=== PATIENT | male | born 1985 | race Caucasian/White ===

== ENCOUNTER 2022-12-15 19:56 | Emergency (ER) | payer BC, SELFPAY ==
[2022-12-15 19:59] VITALS: BP 146/108; PULSE 127; RESP 16; TEMP 36.8; O2SAT 97; BMI 42.6
--- NOTE | 2022-12-15 20:12 | ED.BACK1 ---
HPI - Back Pain/Injury General Chief Complaint: Back Pain/Injury Stated Complaint: Lower Left Back Pain Time Seen by Provider: 12/15/22 20:02 Source: patient Mode of arrival: walk-in History of Present Illness HPI Narrative: chronic lower back pain on and off for several months. 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 States his back will bother him but once he sits or stands he has no pain Over the past week the pain has been more constant. No weakness of his lower extremities. Warming sensation down his left leg to his knee. No associated abdominal pain or nausea. Has taken Ibuprofen and tylenol today without benefit. he is now sitting and states he has minimal pain. States when he lays down he has no pain. His pain occurs when he stands. No loss of control or bowel or bladder MD elicited complaint: Reports back pain Related Data Allergies Allergy/AdvReac Type Severity Reaction Status Date / Time Penicillins Allergy Severe Anaphylaxis Verified 12/15/22 20:11 Review of Systems ROS Status of ROS 10 or more systems reviewed and unremarkable except as noted in history and below [facility] Social History Smoking status: Current every day smoker Exam Constitutional Vital Signs, click to edit/add: Last Vital Signs Temp 98.3 F 12/15/22 19:59 Pulse 127 H 12/15/22 19:59 Resp 16 12/15/22 19:59 BP 146/108 H 12/15/22 19:59 Pulse Ox 97 12/15/22 19:59 O2 Del Method Room Air 12/15/22 19:59 Common normals: no apparent distress, oriented x3, healthy appearing, alert and well nourished Eye Common normals: EOMs intact bilaterally and conjunctivae normal Respiratory Common normals: normal respiratory effort, no retractions, no use of accessory muscles and clear to auscultation bilaterally Cardio Common normals: regular rate, regular rhythm, S1 normal heart sound and S2 normal heart sound GI Common normals: Normal to inspection, nondistended, normoactive bowel sounds present, soft to palpation and non-tender Extremity Common normals: normal to inspection Neuro Common normals: oriented x3, CN's II-XII intact bilaterally, moves all extremities, no focal motor deficits (no foot drop), no sensory deficits noted and gait normal Psych Appearance: grossly normal Course Vital Signs Vital signs: Vital Signs Temperature 98.3 F 12/15/22 19:59 Pulse Rate 127 H 12/15/22 19:59 Respiratory Rate 16 12/15/22 19:59 Blood Pressure 146/108 H 12/15/22 19:59 Pulse Oximetry 97 12/15/22 19:59 Oxygen Delivery Method Room Air 12/15/22 19:59 Temperature 98.3 F 12/15/22 19:59 Pulse Rate 127 H 12/15/22 19:59 Respiratory Rate 16 12/15/22 19:59 Blood Pressure 146/108 H 12/15/22 19:59 Pulse Oximetry 97 12/15/22 19:59 Oxygen Delivery Method Room Air 12/15/22 19:59 MDM - Back Pain/Injury MDM Narrative Medical decision making narrative: patient presents with acute on chronic lower back pain. No neuro deficits.no fever or injury. medicated in the department with Toradol, solumedrol and magnesium and pain tolerable. Patient ambulatory in the department stating the pain is now tolerable. labs demonstrate elevated WBC. no findings to support infection. He was informed of the elevated WBC and states it has been high before and he is aware of this. He is discharged in improved condition and advised to follow up with his doctor regarding his back pain and elevated WBC Discharged home with a prescription of Ultram. Lab Data Labs: Lab Results 12/15/22 12/15/22 Range/Units 20:20 21:10 WBC 18.4 H (4.0-11.0) 10^3/uL RBC 5.48 (4.70-6.10) 10^6/uL Hgb 16.2 (14.0-18.0) g/dL Hct 47.9 (42.0-54.0) % MCV 87.4 (80.0-94.0) fL MCH 29.6 (25.9-34.0) pg MCHC 33.8 (29.9-35.2) g/dL RDW 12.7 (11.0-15.0) % Plt Count 316 (150-450) 10^3/uL MPV 9.5 (9.5-13.5) fL Neut % (Auto) 73.0 (43.0-75.0) % Lymph % (Auto) 19.7 L (20.5-60.0) % [place] % (Auto) 5.3 (1.7-12.0) % Eos % (Auto) 1.1 (0.9-7.0) % Baso % (Auto) 0.4 (0.2-2.0) % Neut # (Auto) 13.4 H (1.4-6.5) 10^3/uL Lymph # (Auto) 3.6 (1.2-3.8) 10^3/uL [place] # (Auto) 1.0 H (0.3-0.8) 10^3/uL Eos # (Auto) 0.2 (0.0-0.7) 10^3/uL Baso # (Auto) 0.1 (0.0-0.1) 10^3/uL Abs Immat Gran (auto) 0.09 H (0.00-0.03) 10^3/uL Imm/Tot Granulo (auto) 0.5 (0.0-0.5) % ESR 43 H (<=15) mm/hr Sodium 140 (136-145) mmol/L Potassium 3.8 (3.5-5.1) mmol/L Chloride 102 (98-107) mmol/L Carbon Dioxide 27.1 (21.0-32.0) mmol/L Anion Gap 14.7 BUN 16.0 (7.0-18.0) mg/dL Creatinine 1.07 (0.70-1.30) mg/dL Est GFR ( Amer) >60 (>=60) Est GFR (Non-Af Amer) >60 (>=60) BUN/Creatinine Ratio 15.0 Glucose 118 H (74-106) mg/dL Calcium 8.7 (8.5-10.1) mg/dL C-Reactive Protein 4.3 H (<=1.0) mg/dL Urine Color Yellow (YELLOW) Urine Clarity Clear (CLEAR) Urine pH 6.0 (5.0-9.0) Ur Specific [place] 1.025 (1.005-1.025) Urine Protein Negative (NEG/TRACE) mg/dL Urine Glucose (UA) >=1000 A (NEGATIVE) mg/dL Urine Ketones Negative (NEGATIVE) mg/dL Urine Occult Blood Negative (NEGATIVE) Urine Nitrite Negative (NEGATIVE) Urine Bilirubin Negative (NEGATIVE) Urine Urobilinogen 0.2 (0.2-1.0) EU/dL Ur Leukocyte Esterase Negative (NEGATIVE) Discharge Plan Discharge Chief Complaint: Back Pain/Injury Clinical Impression: Lower back pain Instructions: Acute Low Back Pain (ED) Additional Instructions: follow up with your doctor for recheck of your back and your blood count Stand Alone Forms: Portal Instructions Referrals: JACQUELINE MONTANA [Primary Care Provider] - 1 week
[2022-12-15] MEDS: METHYLPREDNISOLONE SOD SUCC PF 125 MG/2 ML VIAL IVP (20:24)
[2022-12-15] MEDS: MAGNESIUM SULFATE IN WATER 2 GM/50 ML PREMIX IV (20:25)
[2022-12-15] MEDS: KETOROLAC TROMETHAMINE 30 MG/ML VIAL IVP (20:25)
[2022-12-15 20:37] LABS: Basophils Absolute Auto 0.1 10^3/uL (0.0-0.1); Basophils Percent Auto 0.4 % (0.2-2.0); Eosinophils Absolute Auto 0.2 10^3/uL (0.0-0.7); Eosinophils Percent Auto 1.1 % (0.9-7.0); Hematocrit 47.9 % (42.0-54.0); Hemoglobin 16.2 g/dL (14.0-18.0); Immature Granulocytes Abs Auto 0.09 10^3/uL (0.00-0.03); Immature Granulocytes Pct Auto 0.5 % (0.0-0.5); Lymphocytes Absolute Auto 3.6 10^3/uL (1.2-3.8); Lymphocytes Percent Auto 19.7 % (20.5-60.0); Mean Corpuscular HGB Conc 33.8 g/dL (29.9-35.2); Mean Corpuscular Hemoglobin 29.6 pg (25.9-34.0); Mean Corpuscular Volume 87.4 fL (80.0-94.0); Mean Platelet Volume 9.5 fL (9.5-13.5); Monocytes Percent Auto 5.3 % (1.7-12.0); Neutrophils Absolute Auto 13.4 10^3/uL (1.4-6.5); Platelet Count 316 10^3/uL (150-450); Red Blood Count 5.48 10^6/uL (4.70-6.10); Red Cell Distribution Width 12.7 % (11.0-15.0); White Blood Count 18.4 10^3/uL (4.0-11.0)
[2022-12-15 20:42] LABS: Erythrocyte Sedimentation Rate 43 mm/hr (<=15)
[2022-12-15 20:48] LABS: Anion Gap 14.7; C Reactive Protein 4.3 mg/dL (<=1.0); Calcium 8.7 mg/dL (8.5-10.1); Carbon Dioxide 27.1 mmol/L (21.0-32.0); Chloride 102 mmol/L (98-107); Estimated GFR (African America >60 (>=60); Estimated GFR (Non-African Ame >60 (>=60); Glucose 118 mg/dL (74-106); Potassium 3.8 mmol/L (3.5-5.1); Sodium 140 mmol/L (136-145)
--- NOTE | 2022-12-15 21:00 | XR_ITS ---
The [place] [id number] Patient Name: PAULA CARDONA MRN: [id number] date: 1985 Sex: M Assigned Patient Location: ER Current Patient Location: ER Accession/Order Number: [id number] Exam Date: 12/15/2022 21:00 Report Date: 12/15/2022 21:31 At the request of: RUSSELL MARTINES Procedure: XR lumbar spine 2-3V EXAM: XR lumbar spine 2-3V HISTORY: back pain COMPARISON: None. TECHNIQUE: 3 view study FINDINGS: Vertebral bodies are normal in height. There is mild disc space narrowing at L5-S1. Other lumbar disc spaces are normal in height. Facet articulations are normal in appearance. XR/XR lumbar spine 2-3V IMPRESSION: Mild disc space narrowing at L5-S1. This may be developmental, as other degenerative changes are not identified. Electronically authenticated by: Joey SANCHEZ Date: 12/15/2022 21:31
[2022-12-15 21:18] LABS: Bilirubin Urine NEGATIVE (NEGATIVE); Blood Urine NEGATIVE (NEGATIVE); Clarity Urine CLEAR (CLEAR); Color Urine YELLOW (YELLOW); Glucose Urine UA >=1000 mg/dL (NEGATIVE); Ketones Urine NEGATIVE (NEGATIVE); Leukocyte Esterase Urine NEGATIVE (NEGATIVE); Nitrite Urine NEGATIVE (NEGATIVE); Protein Urine NEGATIVE (NEG/TRACE); Specific Gravity Urine 1.025 (1.005-1.025); Urobilinogen Urine 0.2 EU/dL (0.2-1.0)
[2022-12-15 21:22] LABS: Urine Microscopic Indicated NO
--- NOTE | 2022-12-15 21:27 | PC.NURSE ---
patient c/o lower left back pain. states he started to having pain a couple months ago and comes and goes. this last week has been more consistant and is now interfering with work. patient states pain is stabbing and at times will experience burning down left leg to left knee. at times will experience pain in left testicle if standing for too long. 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 recently lost 60lbs. did not have back issues prior to weight loss. patient states when at rest and sitting pain goes away and increases when he stands.
[2022-12-15] MEDS: TRAMADOL HCL 50 MG TABLET 200 MG PO (22:46)
== END 2022-12-15 22:55 | disposition home or self-care (01) ==
PROVIDERS: Emergency Provider Internal Medicine; PCP Family Medicine
DX: M54.50 Low back pain, unspecified (principal); G89.29 Other chronic pain; F17.210 Nicotine dependence, cigarettes, uncomplicated
CPT/HCPCS: 36415; 72100; 80048; 81003; 85025; 85652; 86140; 96374; 96375; 99284; J2930

== ENCOUNTER 2024-03-27 23:25 | Emergency (ER) | payer BC, SELFPAY ==
[2024-03-27 23:37] VITALS: BP 140/99; PULSE 106; TEMP 36.8; O2SAT 96; BMI 44.9
--- NOTE | 2024-03-27 23:53 | PC.NURSE ---
complains of left side neck pain and swelling onset 1 day ago, this was seen at urgent care 1 day and given medication, this patient voices a sore throat and no other complaints and shows no signs of distress
--- NOTE | 2024-03-27 23:58 | ED.NECK1 ---
HPI HPI - Neck Pain/Injury General Chief Complaint: Neck Pain/Injury Stated Complaint: NECK PAIN, LIMITED MOVEMENT Time Seen by Provider: 03/27/24 23:43 Source: patient Mode of arrival: walk-in Limitations: no limitations History of Present Illness HPI Narrative: 38-year-old male presents to the emergency department for pain on the left side of his neck. He points to the area just below the angle of his jaw and states he woke up this way yesterday morning. There was no preceding trauma or unusual activity. He went to an urgent care and they gave him a steroid. No fever or right sided pain. Related Data Home Medications ?Medication ?Instructions ?Recorded ?Confirmed ibuprofen 800 mg tablet 800 mg PO TID-QID PRN pain 03/27/24 03/27/24 metformin 1,000 mg tablet,extended 1,000 mg PO BID 03/27/24 03/27/24 release 24hr (osmotic) semaglutide 1 mg/dose (4 mg/3 mL) 1 mg subcut QWEEK 03/27/24 03/27/24 subcutaneous pen injector (Ozempic) Previous Rx's ?Medication ?Instructions ?Recorded acetaminophen 300 mg-codeine 30 mg 1 tab PO Q6H PRN pain 5 days #20 03/28/24 tablet tabs methocarbamol 750 mg tablet 750 mg PO Q6H PRN pain #20 tabs 03/28/24 Allergies Allergy/AdvReac Type Severity Reaction Status Date / Time Penicillins Allergy Severe Anaphylaxis Verified 03/27/24 23:36 Opioid HPI Opioid Management Most Recent Opioid Data: Last Pain Scale 8 03/28/24 00:48 03/28/24 Last MAR Pain Assessment 03/28/24 00:48 Review of Systems ROS Narrative A ten point review of systems is negative except as noted above. [facility] Medical History (Updated 03/28/24 @ 01:26 by Triston Castillo MD) Diabetes ?E11.9 - Type 2 diabetes mellitus without complications (ICD-10) Hypertension ?I10 - Essential (primary) hypertension (ICD-10) Social History Smoking status: Current every day smoker Little interest or pleasure in doing things: not at all Feeling down, depressed, or hopeless: not at all Exam Narrative Exam Narrative: Nurses note and vital signs reviewed and patient is not hypoxic. General: The patient appears well and in no apparent distress. Patient is resting comfortably on cart. Skin: Warm, dry, no pallor noted. There is no rash noted. Head: Normocephalic, atraumatic Eye: Normal conjunctiva, no drainage Ears, Nose, Mouth, and Throat: oral mucosa is moist. Nares patent. He has some tenderness below the left angle of the jaw but there are no masses other than a small palpable lymph node. There is no erythema or bruising or rash. Neck has good range of motion, no rigidity Cardiovascular: Regular Rate and Rhythm Respiratory: Patient is in no distress, no accessory muscle use, lungs are clear to auscultation, no wheezing, rales or rhonchi Back: non-tender GI: Soft and nontender Musculoskeletal: The patient has no evidence of calf tenderness, no pitting edema, symmetrical pulses noted bilaterally Neurological: A&O, normal speech; upper and lower extremity strength intact Psychiatric: Cooperative Constitutional Vital Signs, click to edit/add: Last Vital Signs Temp 98.3 F 03/27/24 23:37 Pulse 106 H 03/27/24 23:37 Resp 19 03/27/24 23:37 BP 140/99 H 03/27/24 23:37 Pulse Ox 96 03/27/24 23:37 O2 Del Method Room Air 03/27/24 23:37 Course Vital Signs Vital signs: Vital Signs Temperature 98.3 F 03/27/24 23:37 Pulse Rate 106 H 03/27/24 23:37 Respiratory Rate 19 03/27/24 23:37 Blood Pressure 140/99 H 03/27/24 23:37 Pulse Oximetry 96 03/27/24 23:37 Oxygen Delivery Method Room Air 03/27/24 23:37 Temperature 98.3 F 03/27/24 23:37 Pulse Rate 106 H 03/27/24 23:37 Respiratory Rate 19 03/27/24 23:37 Blood Pressure 140/99 H 03/27/24 23:37 Pulse Oximetry 96 03/27/24 23:37 Oxygen Delivery Method Room Air 03/27/24 23:37 MDM - Neck Pain/Injury MDM Narrative Medical decision making narrative: His workup here is negative including x-ray of his neck. Amylase is normal, no evidence of parotitis. He will be treated symptomatically. Treatment diagnosis and follow-up were discussed with the patient. Lab Data Attestation: I reviewed the patient's lab results. Labs: Lab Results 03/28/24 Range/Units 00:12 WBC 17.4 H (4.0-11.0) 10^3/uL RBC 4.81 (4.70-6.10) 10^6/uL Hgb 14.6 (14.0-18.0) g/dL Hct 42.2 (42.0-54.0) % MCV 87.7 (80.0-94.0) fL MCH 30.4 (25.9-34.0) pg MCHC 34.6 (29.9-35.2) g/dL RDW 12.3 (11.0-15.0) % Plt Count 220 (150-450) 10^3/uL MPV 9.4 L (9.5-13.5) fL Neut % (Auto) 76.4 H (43.0-75.0) % Lymph % (Auto) 14.3 L (20.5-60.0) % [place] % (Auto) 7.9 (1.7-12.0) % Eos % (Auto) 0.7 L (0.9-7.0) % Baso % (Auto) 0.3 (0.2-2.0) % Neut # (Auto) 13.3 H (1.4-6.5) 10^3/uL Lymph # (Auto) 2.5 (1.2-3.8) 10^3/uL [place] # (Auto) 1.4 H (0.3-0.8) 10^3/uL Eos # (Auto) 0.1 (0.0-0.7) 10^3/uL Baso # (Auto) 0.1 (0.0-0.1) 10^3/uL Abs Immat Gran (auto) 0.07 H (0.00-0.03) 10^3/uL Imm/Tot Granulo (auto) 0.4 (0.0-0.5) % Sodium 139 (136-145) mmol/L Potassium 4.2 (3.5-5.1) mmol/L Chloride 104 (98-107) mmol/L Carbon Dioxide 26.3 (21.0-32.0) mmol/L Anion Gap 12.9 BUN 16.0 (7.0-18.0) mg/dL Creatinine 0.93 (0.70-1.30) mg/dL Est GFR ( Amer) >60 (>=60 mL/min/1.73m^2) Est GFR (Non-Af Amer) >60 (>=60 mL/min/1.73m^2) BUN/Creatinine Ratio 17.2 Glucose 105 (74-106) mg/dL Calcium 8.6 (8.5-10.1) mg/dL Amylase 34 (25-115) U/L Imaging Data C-spine x-ray: Radiologist's impression: ITS Impressions Cervical Spine X-Ray 03/28/24 00:01 IMPRESSION: 1. Normal examination. Electronically authenticated by: DANNY WHITEHEAD Date: 03/28/2024 01:00 Discharge Plan Discharge Chief Complaint: Neck Pain/Injury Clinical Impression: Neck pain Patient Disposition: Home, Self-Care Time of Disposition Decision: 01:26 Condition: Good Mode of Transportation: Private Vehicle Prescriptions / Home Meds: New acetaminophen-codeine 300-30 mg tablet 1 tab PO Q6H PRN (Reason: pain) 5 Days Qty: 20 0RF methocarbamol 750 mg tablet 750 mg PO Q6H PRN (Reason: pain) Qty: 20 0RF No Action metformin 1,000 mg tablet extended release 24hr 1,000 mg PO BID Ozempic 1 mg/dose (4 mg/3 mL) pen injector 1 mg subcut QWEEK ibuprofen 800 mg tablet 800 mg PO TID-QID PRN (Reason: pain) Print Language: Yoruba Instructions: Acute Neck Pain (ED) Referrals: JACQUELINE MONTANA [Primary Care Provider] - 1 week
--- NOTE | 2024-03-28 00:01 | XR_ITS ---
The [address] [address] Patient Name: PAULA CARDONA MRN: [id number] date: 1985 Sex: M Assigned Patient Location: ER Current Patient Location: ER Accession/Order Number: [id number] Exam Date: 03/28/2024 00:15 Report Date: 03/28/2024 01:00 At the request of: TANI CHAMORRO Procedure: XR cervical spine 2-3V EXAMINATION: XR cervical spine 2-3V HISTORY: Atraumatic left-sided pain COMPARISON: No relevant comparison available. FINDINGS: BONES: No significant spondylosis, scoliosis, fracture, or visible bony lesion. DISC SPACES: No significant disc height narrowing, subluxation, or endplate abnormality. PARASPINOUS: Negative. No paraspinous abnormality is seen. OTHER: Negative. XR/XR cervical spine 2-3V IMPRESSION: 1. Normal examination. Electronically authenticated by: DANNY WHITEHEAD Date: 03/28/2024 01:00
[2024-03-28 00:19] LABS: Basophils Absolute Auto 0.1 10^3/uL (0.0-0.1); Basophils Percent Auto 0.3 % (0.2-2.0); Eosinophils Absolute Auto 0.1 10^3/uL (0.0-0.7); Eosinophils Percent Auto 0.7 % (0.9-7.0); Hematocrit 42.2 % (42.0-54.0); Hemoglobin 14.6 g/dL (14.0-18.0); Immature Granulocytes Abs Auto 0.07 10^3/uL (0.00-0.03); Immature Granulocytes Pct Auto 0.4 % (0.0-0.5); Lymphocytes Absolute Auto 2.5 10^3/uL (1.2-3.8); Lymphocytes Percent Auto 14.3 % (20.5-60.0); Mean Corpuscular HGB Conc 34.6 g/dL (29.9-35.2); Mean Corpuscular Hemoglobin 30.4 pg (25.9-34.0); Mean Corpuscular Volume 87.7 fL (80.0-94.0); Mean Platelet Volume 9.4 fL (9.5-13.5); Monocytes Absolute Auto 1.4 10^3/uL (0.3-0.8); Monocytes Percent Auto 7.9 % (1.7-12.0); Neutrophils Absolute Auto 13.3 10^3/uL (1.4-6.5); Neutrophils Percent Auto 76.4 % (43.0-75.0); Platelet Count 220 10^3/uL (150-450); Red Blood Count 4.81 10^6/uL (4.70-6.10); Red Cell Distribution Width 12.3 % (11.0-15.0); White Blood Count 17.4 10^3/uL (4.0-11.0)
[2024-03-28 00:30] LABS: Amylase 34 U/L (25-115); Anion Gap 12.9; BUN Creatinine Ratio 17.2; Calcium 8.6 mg/dL (8.5-10.1); Carbon Dioxide 26.3 mmol/L (21.0-32.0); Chloride 104 mmol/L (98-107); Estimated GFR (African America >60 (>=60 mL/min/1.73m^2); Estimated GFR (Non-African Ame >60 (>=60 mL/min/1.73m^2); Glucose 105 mg/dL (74-106); Potassium 4.2 mmol/L (3.5-5.1); Sodium 139 mmol/L (136-145)
[2024-03-28] MEDS: KETOROLAC TROMETHAMINE 60 MG/2 ML VIAL IM (00:48)
[2024-03-28] MEDS: ORPHENADRINE 60 MG/ 2 ML VIAL IM (00:48)
--- NOTE | 2024-03-28 01:45 | PC.NURSE ---
i gave this patient verbal and written discharge orders along with 2 e-scripts, his patient voices yes to understanding these. at time of discharge this patient voices no concerns and shows no signs of distress
== END 2024-03-28 01:46 | disposition home or self-care (01) ==
PROVIDERS: Emergency Provider Emergency Medicine; PCP Family Medicine
DX: M54.2 Cervicalgia (principal); F17.200 Nicotine dependence, unspecified, uncomplicated
CPT/HCPCS: 36415; 72040; 80048; 82150; 85025; 96372; 99285; J1885; J2360

== ENCOUNTER 2024-03-29 00:11 | Emergency (ER) | payer BC, SELFPAY ==
[2024-03-29 00:13] VITALS: BP 178/101; PULSE 102; TEMP 36.4; O2SAT 98; BMI 44.9
--- NOTE | 2024-03-29 00:24 | CT_ITS ---
The [address] [address] Patient Name: PAULA CARDONA MRN: [id number] date: 1985 Sex: M Assigned Patient Location: ER Current Patient Location: Accession/Order Number: [id number] Exam Date: 03/29/2024 00:41 Report Date: 03/29/2024 02:00 At the request of: TANI CHAMORRO Procedure: CT soft tissue neck w con EXAMINATION: CT Soft Tissue Neck with IV Contrast TECHNIQUE: Axial CT imaging of the neck was performed following the intravenous injection of contrast material according to the standard protocol. Sagittal and coronal 2-D reformats were made from source images. CONTRAST: The amount and type of contrast are recorded int he medical record. QPP DOCUMENTATION: At least one of the following dose reduction techniques was utilized: Iterative reconstruction, and/or Automatic Exposure Control, and/or mA/kV adjustment based on body size. INDICATION: . Atraumatic pain COMPARISON: None FINDINGS: Pharynx/Larynx: There is mildly enhancing soft tissue prominence along the base of the tongue and filling the vallecula. This may represent hypertrophied lingual tonsils. No other mass lesions are identified throughout the nasopharynx, oropharynx, hypopharynx, or larynx. The trachea and visualized esophagus are unremarkable. No retropharyngeal fluid collections. No evidence of tonsillar abscesses. Oral Cavity: The visualized portions of the oral tongue and floor of mouth are unremarkable. Lymph Nodes: No pathologically enlarged cervical lymph nodes. Vascular: There is hazy attenuation within the fat around the carotid sheath extending from the C1 level to the level the thyroid cartilage. No discrete fluid collections are identified in this region. Thyroid: The thyroid gland is unremarkable. Parotid and Submandibular Glands: The submandibular and parotid glands have a normal appearance. Osseous Structures: Unremarkable. Orbits and Paranasal Sinuses: The visualized orbits and paranasal sinuses are unremarkable. Intracranial: The visualized intracranial structures are unremarkable. Lung Apices: The visualized lung apices are clear. CT/CT soft tissue neck w con IMPRESSION: 1. There is hazy attenuation of the fat around the upper carotid sheath extending from about the C1 level to the level the thyroid cartilage. No discrete fluid collections. These findings are of uncertain etiology. Multiple infectious and inflammatory processes could give this appearance. Electronically authenticated by: JESUS TABOR Date: 03/29/2024 02:00
--- NOTE | 2024-03-29 00:24 | ED.NECK1 ---
HPI HPI - Neck Pain/Injury General Chief Complaint: Neck Pain/Injury Stated Complaint: NECK PAIN Time Seen by Provider: 03/29/24 00:21 Source: patient Mode of arrival: walk-in Limitations: no limitations History of Present Illness HPI Narrative: 38-year-old male presents to the emergency department for pain in his neck. He was seen here last night for the same issue and had blood work and an x-ray of his neck that was negative. He continues to have pain just below the angle of his jaw. There was no trauma and has had this for few days. He has no right-sided pain or sore throat or posterior neck pain. No chest pain or shortness of breath or cough. Related Data Home Medications ?Medication ?Instructions ?Recorded ?Confirmed ibuprofen 800 mg tablet 800 mg PO TID-QID PRN pain 03/27/24 03/29/24 metformin 1,000 mg tablet,extended 1,000 mg PO BID 03/27/24 03/29/24 release 24hr (osmotic) semaglutide 1 mg/dose (4 mg/3 mL) 1 mg subcut QWEEK 03/27/24 03/29/24 subcutaneous pen injector (Ozempic) methylprednisolone 4 mg tablets in 4 mg PO Q12H 03/29/24 03/29/24 a dose pack Previous Rx's ?Medication ?Instructions ?Recorded acetaminophen 300 mg-codeine 30 mg 1 tab PO Q6H PRN pain 5 days #20 03/28/24 tablet tabs methocarbamol 750 mg tablet 750 mg PO Q6H PRN pain #20 tabs 03/28/24 Allergies Allergy/AdvReac Type Severity Reaction Status Date / Time Penicillins Allergy Severe Anaphylaxis Verified 03/29/24 00:18 Opioid HPI Opioid Management Most Recent Opioid Data: Last Pain Scale 8 03/28/24 00:48 03/28/24 Review of Systems ROS Narrative A ten point review of systems is negative except as noted above. [facility] Medical History (Updated 03/29/24 @ 02:41 by Triston Castillo MD) Diabetes ?E11.9 - Type 2 diabetes mellitus without complications (ICD-10) Hypertension ?I10 - Essential (primary) hypertension (ICD-10) Social History Smoking status: Current every day smoker Little interest or pleasure in doing things: not at all Feeling down, depressed, or hopeless: not at all Exam Narrative Exam Narrative: Nurses note and vital signs reviewed and patient is not hypoxic. General: The patient appears well and in no apparent distress. Patient is resting comfortably on cart. Skin: Warm, dry, no pallor noted. There is no rash noted. Head: Normocephalic, atraumatic Eye: Normal conjunctiva, no drainage Ears, Nose, Mouth, and Throat: oral mucosa is moist. Nares patent. His neck has no bruise or rash. Palpable lymph node is present below the left angle of the jaw. Cardiovascular: Regular Rate and Rhythm Respiratory: Patient is in no distress, no accessory muscle use, lungs are clear to auscultation, no wheezing, rales or rhonchi Back: non-tender GI: Soft and nontender Musculoskeletal: No joint swelling Neurological: A&O, normal speech Psychiatric: Cooperative Constitutional Vital Signs, click to edit/add: Last Vital Signs Temp 97.6 F 03/29/24 00:13 Pulse 102 H 03/29/24 00:13 Resp 18 03/29/24 00:13 BP 178/101 H 03/29/24 00:13 Pulse Ox 98 03/29/24 00:13 O2 Del Method Room Air 03/29/24 00:13 Course Vital Signs Vital signs: Vital Signs Temperature 97.6 F 03/29/24 00:13 Pulse Rate 102 H 03/29/24 00:13 Respiratory Rate 18 03/29/24 00:13 Blood Pressure 178/101 H 03/29/24 00:13 Pulse Oximetry 98 03/29/24 00:13 Oxygen Delivery Method Room Air 03/29/24 00:13 Temperature 97.6 F 03/29/24 00:13 Pulse Rate 102 H 03/29/24 00:13 Respiratory Rate 18 03/29/24 00:13 Blood Pressure 178/101 H 03/29/24 00:13 Pulse Oximetry 98 03/29/24 00:13 Oxygen Delivery Method Room Air 03/29/24 00:13 MDM - Neck Pain/Injury MDM Narrative Medical decision making narrative: CT scan per radiologist shows nonspecific hazy attenuation in the fat tissue of the left carotid sheath. There is no abscess or defined evidence of an infection. Case was discussed with Dr. Earl and the patient is being referred to Dr. Earl. He will continue the steroids and the pain medication. Treatment diagnosis and follow-up were discussed with the patient. Differential Diagnosis Differential diagnosis: Likely disc disorder of cervical region, cervical radiculopathy and other (Muscle strain) Imaging Data CT neck: Radiologist's impression: ITS Impressions Soft Tissue Neck CT 03/29/24 00:24 IMPRESSION: 1. There is hazy attenuation of the fat around the upper carotid sheath extending from about the C1 level to the level the thyroid cartilage. No discrete fluid collections. These findings are of uncertain etiology. Multiple infectious and inflammatory processes could give this appearance. Electronically authenticated by: JESUS TABOR Date: 03/29/2024 02:00 ADDENDUM: 03/29/24 0222 IMPRESSION: 1. There is hazy attenuation of the fat around the upper carotid sheath extending from about the C1 level to the level the thyroid cartilage. No discrete fluid collections. These findings are of uncertain etiology. Multiple infectious and inflammatory processes could give this appearance. Electronically authenticated by: JESUS TABOR Date: 03/29/2024 02:18 Discharge Plan Discharge Chief Complaint: Neck Pain/Injury Clinical Impression: Neck pain Patient Disposition: Home, Self-Care Time of Disposition Decision: 02:41 Condition: Good Mode of Transportation: Private Vehicle Prescriptions / Home Meds: No Action methylprednisolone 4 mg tablets,dose pack 4 mg PO Q12H metformin 1,000 mg tablet extended release 24hr 1,000 mg PO BID Ozempic 1 mg/dose (4 mg/3 mL) pen injector 1 mg subcut QWEEK ibuprofen 800 mg tablet 800 mg PO TID-QID PRN (Reason: pain) acetaminophen-codeine 300-30 mg tablet 1 tab PO Q6H PRN (Reason: pain) 5 Days Qty: 20 0RF methocarbamol 750 mg tablet 750 mg PO Q6H PRN (Reason: pain) Qty: 20 0RF Print Language: Botswanan Instructions: Acute Neck Pain (ED) Referrals: JACQUELINE MONTANA [Primary Care Provider] - 1 week Nikole Earl MD [Physician] - 1 week
== END 2024-03-29 03:02 | disposition home or self-care (01) ==
PROVIDERS: Emergency Provider Emergency Medicine; PCP Family Medicine
DX: M54.2 Cervicalgia (principal); F17.200 Nicotine dependence, unspecified, uncomplicated; R93.7 Abnormal findings on diagnostic imaging of other parts of musculoskeletal system
CPT/HCPCS: 70491; 99284; Q9967

== ENCOUNTER 2025-03-02 09:51 | Emergency (ER) | payer BC, SELFPAY ==
--- OUTSIDE RECORDS SUMMARY | 2014-05-19 05:45 | XMS_ITS | Continuity of Care Document ---
Author Organization [facility] Address [address] [place] [address] Phone Care Team Providers Care Remotely Operated Vehicle Name Role Phone Israel Ko Unavailable Unavailable Allergies, Adverse Reactions, Alerts Substance Reaction Status Criticality Penicillins Unknown Active No Information Procedures Procedure Date IMMUNIZATION ADMIN HEP B VACCINE, ADULT, IM OFFICE/OUTPATIENT VISIT, EST HEP B VACCINE, ADULT, IM OFFICE/OUTPATIENT VISIT, EST HEP B VACCINE, ADULT, IM FLU VAC NO PRSV 4 KELLY 3 YRS+ HEP B VACCINE, ADULT, IM OFFICE/OUTPATIENT VISIT, EST TB INTRADERMAL TEST TB INTRADERMAL TEST TB INTRADERMAL TEST HEP B VACCINE, ADULT, IM TB INTRADERMAL TEST OFFICE/OUTPATIENT VISIT, EST HEP B VACCINE, ADULT, IM TB INTRADERMAL TEST Advance Directives Directive Yes / No Effective Date File Name No Information Encounters Encounter Description Practice Location Reason(s) For Visit Diagnoses Date Provider Providers Copied on Encounter OFFICE/OUTPAT IENT VISIT, [facility], [address] [place], [place], [id number], [place] tel:[phone] [facility] No Information 3-201 5 Marleny Zheng. [address] [place] [address], [id number] , [place]. tel:[phone] OFFICE/OUTPAT IENT VISIT, [facility], [address] [place], [place], [id number], [place] tel:[phone] [facility] Influenza Vaccine 4 Marleny Zheng. [address] [place], [place], [id number] , [place]. tel:[phone] [facility], [address] [place], [place], [id number], [place] tel:[phone] [facility] No Information 4 Marleny Zheng. [address] [place], [place], [id number] , [place]. tel: [phone] OFFICE/OUTPAT IENT VISIT, [facility], [address] [place] [address], [id number], [place] tel:[phone] [facility] Screening examination for pulmonary tuberculosisNeed for prophylactic vaccination and inoculation against viralhepatitis 4 [facility]. [address] [place] [address], [id number] , [place]. tel:[phone] Family History Family Member Type Diagnosis Age At Onset No Information Immunizations Vaccine Date Status Comments Hepatitis B, Adult dose administered Note : VIS 05/08/11 given. ; Source: New Immunization Record Flu (split) (3 yrs or older) administered Note: VIS given for all vaccines administered today. ; Source: New Immunization Record Flu (split) (3 yrs or older) administered Note: VIS given for all vaccines administered today. ; Source: New Immunization Record Flu (split) (3 yrs or older) administered Note: VIS given for all vaccines administered today. ; Source: New Immunization Record Flu (split) (3 yrs or older) administered Note: VIS given for all vaccines administered today. ; Source: New Immunization Record Flu (split) (3 yrs or older) administered Note: VIS given for all vaccines administered today. ; Source: New Immunization Record Flu (split) (3 yrs or older) administered Note: VIS given for all vaccines administered today. ; Source: New Immunization Record Flu (split) (3 yrs or older) administered Note: VIS given for all vaccines administered today. ; Source: New Immunization Record Flu (split) (3 yrs or older) administered Note: VIS given for all vaccines administered today. ; Source: New Immunization Record Flu (split) (3 yrs or older) administered Note: VIS given for all vaccines administered today. ; Source: New Immunization Record Flu (split) (3 yrs or older) administered Note: VIS given for all vaccines administered today. ; Source: New Immunization Record Flu (split) (3 yrs or older) administered Note: VIS given for all vaccines administered today. ; Source: New Immunization Record Flu (split) (3 yrs or older) administered Note: VIS given for all vaccines administered today. ; Source: New Immunization Record Flu (split) (3 yrs or older) administered Note: VIS given for all vaccines administered today. ; Source: New Immunization Record Hep B (adult) administered Source: New Im munization Record Hep B (adult) administered Note: Vis give n for all vaccines given today. ; Source: New Immunization Record Payers Payer name Insurance type Covered alliance party ID Authoriza tion(s) Medicaid Wrap - [facility] [place] [id number] Medicaid Wrap - [employer] [place] [id number] Social History Type Description Quantity Date Captured Comments Sex Male Smoking Status No Information Chief Complaint And Reason For Visit No Information Reason For Referral Reason For Referral No Information History Of Present Illness Encounter Date Complaint History Of Prese nt Illness No Information Functional Status Date Functional Assessmen t No Information Instructions Date Instruction Additional Infor mation No Information Assessments Type Assessment Date No Information Patient Care Teams Name Effective Dates (start - stop) Status Members No Information
[2025-03-02 09:57] VITALS: BP 158/108; PULSE 89; TEMP 36.8; O2SAT 96; BMI 35.4
--- OUTSIDE RECORDS SUMMARY | 2025-03-02 10:16 | XMS_ITS | Patient Health Record ---
Author Organization [facility] Address [address] [place] [address] Care Team Providers Care Cnc Cutting Operator Name Role Phone None, None Primary Care Provider Angelo Lockett Unavailable [phone] Allergies Allergen (clinical drug ingredient) Drug/Non Drug Allergy documented on EMR Reaction Allergy Type Onset Date Status PenicillinUnknownDrug AllergyActive Reason For Referral No Information Medications Medication SIG (Take, Route, Frequency, Duration) Notes Start Date End Date Status Benzonatate 100 MG Capsule 1 capsule as needed O rally tid prn; Duration: 7 days 06/13/2021ctiveJardiance 25 MG Tablet1 tablet Orally Once a day; Duration: 30 day(s)ActivemethylPREDNISolone 4 MG Tablet Therapy Packas directed Orally s directed; Duration: 6 days06/13/2021ctivemetFORMIN HCl 1000 MG Tablet1 tablet with a meal Orally Once a day; Duration: 30 day(s)ActiveIbuprofen 800 MG Tablet1 tablet with food or milk as needed Orally Three times a dayActiveAlbuterol Sulfate HFA 108 (90 Base) MCG/ACT Aerosol Solution2 puff as needed Inhalation every 4 hrs prn; Duration: 10 days06/13/2021ctiveLisinopril 20 MG Tablet1 tablet Orally Once a day; Duration: 30 day(s)Active Social History Social History Additional DetailsCategorySocial InfoOptionsDetailsMiscellaneous:Domestic Violence:noVerbal abuse:no*Ask Below Questions*Colleen Yuan CMA 06/13/2021 11:49:10 AM EST >Emotional Abuse:noPhysical Abuse:noFinancial Abuse:noElderly Abuse:noChild Abuse:noSexual Abuseno Plan Of Treatment No Information Insurance Providers Payer Name Payer Address Payer Phone Subscriber Number Group Number Insured Name Patient Relationship to Insured Coverage Start Date Coverage End Date DEAN JIMENEZ [address] [place] [phone] [id number] PAULA CARDONA Self - patient is the insured 1 Medical (General) History Surgical History Surgery Date(Month/Year)
--- OUTSIDE RECORDS SUMMARY | 2025-03-02 10:16 | XMS_ITS | Clinical Summary ---
Author Organization [facility] Address [address] [place] [address] Care Team Providers Care Nursery Helper Name Role Phone Pravin Florian DO Primary Care Provider [phone] Allergies Active AllergyReactionsCriticalityNoted DateCommentsPenicillin JQmzdz9108/28/2022 Medications MedicationSigDispense QuantityRefillsLast FilledStart DateEnd DateStatus Continuous Blood Gluc Recording Engineer (FreeStyle Eileen 2 Keller) device USE TO MONITOR CJNTZJB3210/18/2021ctive Continuous Blood Gluc Sensor (FreeStyle Eileen 2 Sensor) misc USE TO MONITOR GLUCOSE (CHANGE SENSOR AFTER 14 DAYS)11/15/2021ctive Jardiance 25 MG Take 25 mg by mouth in the morning.04/09/2022ctive ibuprofen 800 MG tablet 1 tablet with food or milk as needed Orally Three times a day as needed.Active lisinopril-hydroCHLOROthiazide 20-12.5 MG tablet Take 1 tablet by mouth in the morning.10/22/2021ctive metFORMIN (Glucophage) 1000 MG tablet every 12 (twelve) hours.Active Active Problems ProblemNoted DateDiagnosed DateType 2 diabetes mellitus without complication, without long-term current use of xrpcytz3408/28/2022 Family History RelationNameStatusCommentsFatherDeceasedMotherDeceased Social History Tobacco UseTypesPacks/DayYears UsedDateSmoking Tobacco: Every DayCigarettes Alcohol UseStandard Drinks/WeekCommentsYes0 (1 standard drink = 0.6 oz pure alcohol)occasionalSex and Gender InformationValueDate RecordedSex Assigned at BirthNot on fileLegal HjaVlau5406/18/2022 7:14 PM EDTGender IdentityNot on file Sexual OrientationNot on file Last Filed Vital Signs Vital SignReadingTime TakenCommentsBlood Hnsdvhvo262/8205/ 2:23 PM EDT Pulse--Temperature--Respiratory Rate--Oxygen Saturation--Inhaled Oxygen Concentration--Uiaxby342 kg (396 lb)08/28/2022 2:23 PM JDKJmdqmh325.9 cm (6') 08/28/2022 2:23 PM EDTBody Mass Index53.71008/28/2022 2:23 PM EDT Plan of Treatment Not on file Insurance Care Teams Team MemberRelationshipSpecialtyStart DateEnd Date Pravin Florian DO PCP - GeneralFamily Medicine08/28/22
--- OUTSIDE RECORDS SUMMARY | 2025-03-02 10:16 | XMS_ITS | Clinical Summary ---
Author Organization [facility] Address [address] [place], [place] [id number] Care Team Providers Care Print Cutter Name Role Phone Leesa Florianyessy Asencio Primary Care Provider [phone] Raman Cotton Unavailable [phone] Allergies Active AllergyReactionsCriticalityNoted DateCommentsPenicillinsAnaphylaxisHigh 07/06/2020 Medications MedicationSigDispense QuantityRefillsLast FilledStart DateEnd DateStatus JARDIANCE 10 mg tablet Take 10 mg by mouth once daily.04/21/2020ctive metFORMIN (GLUCOPHAGE) 1,000 mg tablet TAKE ONE TABLET BY MOUTH TWO TIMES A DAY WITH A MEAL04/04/2020Active Phentermine HCl 37.5 mg tablet Take by mouth every 24 hours.Active ibuprofen (IBU) 800 mg tablet 12/05/2017Active Active Problems ProblemNoted DateDiagnosed DateObesity, Class III, BMI >= 4012train of right rotator cuff hqdrldw5001/07/2021Impingement syndrome of right shoulder 01/07/2021dhesive capsulitis of right xokwkyvu08/04/2021 Family History Medical HistoryRelationCommentsDiabetesFatherbladder cancerFatherHeart Attack Maternal GrandmotherDiabetesMotherHeart diseaseMotherRectal CancerMotherRelation StatusCommentsFatherAliveMaternal GrandmotherMotherAlive Social History Tobacco UseTypesPacks/DayYears UsedDateSmoking Tobacco: Every DayCigarettes0.31 Smokeless Tobacco: Never Tobacco Cessation:Ready to Q uit: Not Asked; Counseling Given: Not Answered Alcohol UseStandard Drinks/WeekCommentsYes0 (1 standard drink = 0.6 oz pure alcohol)occasionalyArea Deprivation IndexAnswerDate RecordedNational Score (1- 100), lower number is lower fmgl979509/23/2022State Score (1-10), lower number is lower dtwx1123Data from: https://www.neighborhoodatlas.medicine.[facility].edu/. Last address used for cwojrvmqh[address]/23/2022Sex and Gender InformationValueDate Recorded Sex Assigned at BirthNot on fileLegal WmmFdlt67/02/2012 8:59 AM ESTGender IdentityNot on fileSexual OrientationNot on file Last Filed Vital Signs Vital SignReadingTime TakenCommentsBlood Ajizgdzq564/9904/28/2023 3:55 PM EST Qggjw92078/23/2024 3:55 PM XDGLlsvmhahwbr61.2 ??C (97.2 ??F)04/28/2023 3:55 PM ESTRespiratory Gdtq099604/28/2023 3:55 PM ESTOxygen Sucsssojae404%04/28/2023 3:55 PM ESTInhaled Oxygen Concentration--Luaedz940 kg (315 lb 4.1 oz)04/28/2023 3:55 PM ZVTYuwnef594 cm (6' 2.02 )04/28/2023 3:55 PM ESTBody Mass Index40.46 04/28/2023 3:55 PM EST Plan of Treatment Health MaintenanceDue DateLast DoneCommentsAnxiety Horyeykql20/31/2005Depression Cwcfqiokz81/31/2005HIV Iuezrslcr97/31/2005Hepatitis C Sgsjgtqgd65/31/2005HPV Vaccine (1 - 3-dose SCDM series)2013Lipid Aejugoyvx79/31/2022ovid-19 Vaccine (2024- season)2024Influenza Vaccine (#1) DTaP,Tdap,Td Vaccine (2 - Td or Tdap)Hepatitis B Vaccine Vmcehuwxh40/13/2015, 03/21/2014, 12/27/2013 Insurance Care Teams Team MemberRelationshipSpecialtyStart DateEnd Pravin Florian [address] [place] [id number] [facility] - General07/22/00 Raman Cotton [address] [place] [phone] ReferringGeneral Surgery09/04/22
--- OUTSIDE RECORDS SUMMARY | 2025-03-02 10:16 | XMS_ITS | Clinical Summary ---
Author Organization [facility] Address [address] [facility] [facility]. [place] [id number] Phone Care Team Providers Care Corporate Licensed Broker Name Role Phone Pravin Florian DO Primary Care Provider [phone] Social History Tobacco UseTypesPacks/DayYears UsedDateSmoking Tobacco: Never AssessedSex and Gender InformationValueDate RecordedSex Assigned at BirthNot on fileLegal Sex Male03/01/2022 6:45 PM ESTGender IdentityNot on fileSexual OrientationNot on file Plan of Treatment Not on file Care Teams Team MemberRelationshipSpecialtyStart DateEnd Date Pravin Florian DO [facility] - [facility]09/06/19
--- OUTSIDE RECORDS SUMMARY | 2025-03-02 10:16 | XMS_ITS | Clinical Summary ---
Author Organization [facility] Address [address], [address] [place] [address] Care Team Providers Care Roof Bolter Operator Name Role Phone VancechungPravin DO Primary Care Provider [phone] Allergies Active AllergyReactionsCriticalityNoted RmozPgtruyqjIhygnmvbxdh83/17/2020 Medications MedicationSigDispense QuantityRefillsLast FilledStart DateEnd DateStatus metFORMIN (GLUCOPHAGE) 1000 MG tablet Take 1,000 mg by mouth 2 times daily (with meals)Active ibuprofen (ADVIL;MOTRIN) 800 MG tablet Take 800 mg by mouth every 8 hours as needed for PainActive empagliflozin (JARDIANCE) 10 MG tablet Take 10 mg by mouth dailyActive vitamin D (ERGOCALCIFEROL) 1.25 MG (34426 UT) CAPS capsule Indications:Dietary counseling,Morbid obesity due to excess calories (HCC), Vitamin D deficiencyTake 1 capsule by mouth Twice a Week 24 capsule Active lisinopril-hydroCHLOROthiazide (PRINZIDE;ZESTORETIC) 20-12.5 MG per tablet Take 1 tablet by mouth daily04/01/2020Active vitamin D (ERGOCALCIFEROL) 1.25 MG (50744 UT) CAPS capsule Take 1 capsule by mouth Twice a Week 24 capsule 1Active Active Problems ProblemNoted DateDiagnosed DateLeg rboure7408/20/2017Closed fracture of navicular (scaphoid) bone of wrist04/16/2007High blood pressureDiabetes mellitus type 2, uncontrolledMorbid (severe) obesity due to excess calories Immunizations ImmunizationAdministration DatesNext DueHep B, ENGERIX-B, RECOMBIVAX-HB, (age 20y+), IM, 1mL05/19/2014,03/21/2014,12/27/2013Influenza, FLUARIX, FLULAVAL, FLUZONE (age 6 mo+) and AFLURIA, (age 3 y+), Quadv PF, 0.5mL03/21/2014TDaP, ADACEL (age 10y-64y), BOOSTRIX (age 10y+), IM, 0.5mL11/02/2017 Family History Medical HistoryRelationNameCommentsCancerFatherBladderCirrhosisFatherDiabetes FatherHypertensionFatherOtherFatherspina bifida, watermellon stomach, chronic cellulitisLiver CancerMaternal GrandfatherHeart AttackMaternal GrandmotherRectal CancerMotherDiabetesPaternal GrandmotherRelationNameStatusCommentsFatherDeceased Maternal GrandfatherDeceasedMaternal GrandmotherDeceasedMotherDeceasedPaternal GrandfatherDeceasedPaternal GrandmotherDeceased Social History Tobacco UseTypesPacks/DayYears UsedDateSmoking Tobacco: IlaiscWuwrcikbiy793 12/05/2000 - 12/05/2012Smokeless Tobacco: CurrentSnuffAlcohol UseStandard Drinks/WeekCommentsYes4 (1 standard drink = 0.6 oz pure alcohol)Sex and Gender InformationValueDate RecordedSex Assigned at BirthNot on fileLegal SexMale 08/22/2014 8:42 PM EDTGender IdentityNot on fileSexual OrientationNot on file Last Filed Vital Signs Vital SignReadingTime TakenCommentsBlood Kuzhjhak428/7404/24/2020 1:39 PM EST Hfvke147704/24/2020 1:39 PM XCDSmyjbhmriue12 ??C (96.8 ??F)01/09/2020 11:55 AM EDT Respiratory Oktg412204/24/2020 1:39 PM ESTOxygen Nepsbvltfr94%01/09/2020 12:10 PM EDTInhaled Oxygen Concentration--Viadcm015.8 kg (414 lb)04/24/2020 1:39 PM EST Bscjdd517 cm (6' 2 )04/24/2020 1:39 PM ESTBody Mass Index53.15004/24/2020 1:39 PM EST Plan of Treatment Not on file Insurance Advance Directives * Full Code (Latest Code Status on File) Date ActivatedDate VssnvqomiawEnrhimnd05/5/2020 9:07 AM01/09/2020 4:43 PM Care Teams Team MemberRelationshipSpecialtyStart DateEnd Date Pravin Florian DO PCP - GeneralFamily Medicine12/15/19
--- NOTE | 2025-03-02 10:41 | XR_ITS ---
The [address] [address] Patient Name: PAULA CARDONA MRN: [id number] date: 1985 Sex: M Assigned Patient Location: ER Current Patient Location: ER Accession/Order Number: [id number] Exam Date: 03/02/2025 10:50 Report Date: 03/02/2025 12:07 At the request of: TANI CHAMORRO MD Procedure: XR lumbar spine 2-3V LUMBAR SPINE - 2 views CLINICAL HISTORY: Atraumatic pain COMPARISON: Lumbar spine 02/23/2023 FINDINGS: Vertebral body heights appear maintained. No significant disc height loss. No acute bony process. XR/XR lumbar spine 2-3V IMPRESSION: NO ACUTE BONY PROCESS. Impression dictated by: Kelvin Lu Jr. DRafiqORafiq 03/02/2025 12:07 PM Dictation [facility] Electronically authenticated by: [id number] Y Date: 03/02/2025 12:07
[2025-03-02] MEDS: ORPHENADRINE 60 MG/2 ML VIAL IM (10:47)
[2025-03-02] MEDS: KETOROLAC TROMETHAMINE 60 MG/2 ML VIAL IM (10:48)
--- NOTE | 2025-03-02 10:51 | ED.GENADUL1 ---
HPI HPI - General Adult General Chief complaint: Extremity Injury, Lower Stated complaint: LOWER BACK PAIN Time Seen by Provider: 03/02/25 10:36 Source: patient Mode of arrival: walk-in Limitations: no limitations History of Present Illness HPI narrative: 39-year-old male presented to the emergency department for lower back pain. He has pain in the midline in his lower back and has had this on and off for almost 2 years. He had x-rays almost 2 years ago. No trauma or radiation of the pain to his legs. No dysuria or hematuria. It was worse today. Related Data Home Medications ?Medication ?Instructions ?Recorded ?Confirmed ibuprofen 800 mg tablet 800 mg PO TID-QID PRN pain 03/27/24 03/29/24 metformin 1,000 mg tablet,extended 1,000 mg PO BID 03/27/24 03/29/24 release 24hr (osmotic) semaglutide 1 mg/dose (4 mg/3 mL) 1 mg subcut QWEEK 03/27/24 03/29/24 subcutaneous pen injector (Ozempic) methylprednisolone 4 mg tablets in 4 mg PO Q12H 03/29/24 03/29/24 a dose pack Previous Rx's ?Medication ?Instructions ?Recorded acetaminophen 300 mg-codeine 30 mg 1 tab PO Q6H PRN pain 5 days #20 03/28/24 tablet tabs methocarbamol 750 mg tablet 750 mg PO Q6H PRN pain #20 tabs 03/28/24 hydrocodone 5 mg-acetaminophen 325 1 tab PO Q6H PRN pain 5 days #20 03/02/25 mg tablet tabs ibuprofen 800 mg tablet 800 mg PO Q8H PRN pain #20 tabs 03/02/25 methocarbamol 750 mg tablet 750 mg PO Q8H #20 tabs 03/02/25 Allergies Allergy/AdvReac Type Severity Reaction Status Date / Time Penicillins Allergy Severe Anaphylaxis Verified 03/29/24 00:18 Opioid HPI Opioid Management Most Recent Opioid Data: Last Pain Scale 7 Today, 10:48 Last MAR Pain Assessment Today, 10:48 Review of Systems ROS Narrative A ten point review of systems is negative except as noted above. [facility] History (Updated 03/02/25 @ 12:11 by Triston Castillo MD) Diabetes ?E11.9 - Type 2 diabetes mellitus without complications (ICD-10) Hypertension ?I10 - Essential (primary) hypertension (ICD-10) Social History Smoking status: Current every day smoker Little interest or pleasure in doing things: not at all Feeling down, depressed, or hopeless: not at all Exam Narrative Exam Narrative: Nurses note and vital signs reviewed General:The patient appears well and in no apparent distress.Patient is sitting upright in a chair. Skin:Warm, dry, no pallor noted.There is no rash noted. Head:Normocephalic, atraumatic Eye: Normal conjunctiva, no drainage Ears, Nose, Mouth, and Throat: oral mucosa is moist. Nares patent. Cardiovascular:Regular Rate and Rhythm Respiratory:Patient is in no distress, no accessory muscle use, lungs are clear to auscultation, no wheezing, rales or rhonchi Back: No bruise or rash or focally of tenderness to palpation. GI: Obese and nontender Musculoskeletal: No swelling in his lower extremities Neurological:A&O, normal speech Psychiatric:Cooperative Constitutional Vital Signs, click to edit/add: Last Vital Signs Temp 98.2 F 03/02/25 09:57 Pulse 89 03/02/25 09:57 Resp 18 03/02/25 09:57 BP 158/108 H 03/02/25 09:57 Pulse Ox 96 03/02/25 09:57 O2 Del Method Room Air 03/02/25 09:57 Course Vital Signs Vital signs: Vital Signs Temperature 98.2 F 03/02/25 09:57 Pulse Rate 89 03/02/25 09:57 Respiratory Rate 18 03/02/25 09:57 Blood Pressure 158/108 H 03/02/25 09:57 Pulse Oximetry 96 03/02/25 09:57 Oxygen Delivery Method Room Air 03/02/25 09:57 Temperature 98.2 F 03/02/25 09:57 Pulse Rate 89 03/02/25 09:57 Respiratory Rate 18 03/02/25 09:57 Blood Pressure 158/108 H 03/02/25 09:57 Pulse Oximetry 96 03/02/25 09:57 Oxygen Delivery Method Room Air 03/02/25 09:57 Medical Decision Making MDM Narrative Medical decision making narrative: X-ray showed no acute findings. He was given IM Toradol and Norflex and is starting to feel improved. He is discharged home with prescriptions for [place] and ibuprofen and Robaxin. Treatment diagnosis and follow-up were discussed with the patient. Differential Diagnosis Differential Diagnosis: Lumbar strain, degenerative disc disease Imaging Data Lumbar x-rays: Radiologist's impression: ITS Impressions Lumbar Spine X-Ray 03/02/25 10:41 IMPRESSION: NO ACUTE BONY PROCESS. Impression dictated by: Kelvin Lu Jr., D.O. 03/02/2025 12:07 PM Dictation Location: [place] [address] Electronically authenticated by: [id number] Y Date: 03/02/2025 12:07 Discharge Plan Discharge Chief Complaint: Extremity Injury, Lower Clinical Impression: Lower back pain Patient Disposition: Home, Self-Care Time of Disposition Decision: 12:11 Condition: Good Mode of Transportation: Private Vehicle Prescriptions / Home Meds: New hydrocodone-acetaminophen 5-325 mg tablet 1 tab PO Q6H PRN (Reason: pain) 5 Days Qty: 20 0RF ibuprofen 800 mg tablet 800 mg PO Q8H PRN (Reason: pain) Qty: 20 0RF methocarbamol 750 mg tablet 750 mg PO Q8H Qty: 20 0RF No Action methylprednisolone 4 mg tablets,dose pack 4 mg PO Q12H metformin 1,000 mg tablet extended release 24hr 1,000 mg PO BID Ozempic 1 mg/dose (4 mg/3 mL) pen injector 1 mg subcut QWEEK ibuprofen 800 mg tablet 800 mg PO TID-QID PRN (Reason: pain) acetaminophen-codeine 300-30 mg tablet 1 tab PO Q6H PRN (Reason: pain) 5 Days Qty: 20 0RF methocarbamol 750 mg tablet 750 mg PO Q6H PRN (Reason: pain) Qty: 20 0RF Print Language: Maori Instructions: Acute Low Back Pain (ED) Referrals: JACQUELINE MONTANA [Primary Care Provider, Family Practice] - 1 week
== END 2025-03-02 12:18 | disposition home or self-care (01) ==
PROVIDERS: Emergency Provider Emergency Medicine; PCP Family Medicine
DX: M54.50 Low back pain, unspecified (principal); F17.200 Nicotine dependence, unspecified, uncomplicated
CPT/HCPCS: 72100; 96372; 99284; J1885; J2360